=== PATIENT | male | born 1950 | race Two or more races ===

== ENCOUNTER 2025-05-05 12:20 | Emergency (ER) | payer OTHER ==
[~2025-05-05] VITALS: Ht 175.3 cm; Wt 72.6 kg
[2025-05-05] MEDS ORDERED: KAPSPARGO SPRIN25 MG (12:28)
[2025-05-05] MEDS ORDERED: IRBESARTAN75 MG (12:28)
[2025-05-05] MEDS ORDERED: AMLODIPINE-OLM1 EAC2 (12:29)
[2025-05-05] MEDS ORDERED: EZALLOR SPRINKLE5 MG (12:29)
== END 2025-05-05 14:20 | disposition home or self-care (01) ==
LOC: ER 12:20
DX: M25.512 Pain in left shoulder (principal)